=== PATIENT | male | born 1980 | race Two or more races ===

== ENCOUNTER 2023-11-10 08:03 | Emergency (ER) | payer OTHER ==
[~2023-11-10] VITALS: Ht 182.9 cm; Wt 98.9 kg
[2023-11-10 08:20] VITALS: BP 131/81; O2SAT 97
[2023-11-10] MEDS ORDERED: PRED FORTE5 ML (08:21)
[2023-11-10] MEDS ORDERED: 0.9 % SODIUM CHLORIDE 1,000 ML IV STA (08:33)
[2023-11-10 09:17] LABS: HEMOGLOBIN 15.9 g/dL (13-16.00); MEAN CELL VOLUME 89.6 fL (80.0-100.00); MEAN CORPUSCULAR HEMOGLOBIN 30.2 pg (27.00-32.0); MEAN CORPUSCULAR HGB CONC 33.8 g/dl (32.0-36.0); PLATELET COUNT 282 K/uL (150-450); RED BLOOD COUNT 5.25 M/uL (4.00-6.00); RED CELL DISTRIBUTION WIDTH 13.2 % (11.5-14.5)
[2023-11-10 09:26] LABS: URINE APPEARANCE Clear; URINE BILIRRUBIN Negative (NEGATIVE); URINE BLOOD Negative; URINE COLOR Yellow; URINE GLUCOSE Negative (NEGATIVE); URINE KETONE Negative (NEGATIVE); URINE LEUKOCYTE Negative; URINE NITRATE Negative; URINE PROTEIN Negative (NEGATIVE); URINE UROBILINOGEN 0.2 E.U./dl
[2023-11-10 09:31] LABS: URINE EPITHELIAL CELLS 1.5 uL (0.0-38.8); URINE RBC 2.1 uL (0.0-20.8); URINE WBC 3.3 uL (0.0-23.2)
[2023-11-10 09:36] LABS: URINE BACTERIA 2.5 uL (0.0-1933)
[2023-11-10] MEDS ORDERED: METRONIDAZOLE/SODIUM CHLORIDE 500 MG/100 ML PIGGYBACK IV ONE (10:45)
[2023-11-10] MEDS ORDERED: CIPROFLOXACIN IN 5 % DEXTROSE 400 MG/200 ML PIGGYBAG IV ONE (10:45)
[2023-11-10 11:14] LABS: CALCIUM 9.9 mg/dL (8.5-10.1); CREATININE SERUM 0.88 mg/dL (0.70-1.30); GFR 95.43; POTASSIUM 4.17 mEq/L (3.5-5.1)
== END 2023-11-10 13:54 | disposition home or self-care (01) ==
LOC: ER 08:05
PROVIDERS: Emergency Medicine
DX: K52.89 Other specified noninfective gastroenteritis and colitis (principal)